=== PATIENT | female | born 1960 | race Caucasian/White ===

== ENCOUNTER → 2020-01-19 13:20 | Outpatient (CLI) | payer OTHER, SELFPAY ==
[2020-01-21 14:08] LABS: Covid-19 Nasal PCR Sendout Lex NOT DETECTED
== END ==
PROVIDERS: Visit Provider Internal Medicine
DX: Z01.89 Encounter for other specified special examinations (principal)
CPT/HCPCS: U0004

== ENCOUNTER 2022-10-06 13:21 | Emergency (ER) | payer MEDICAID, SELFPAY ==
--- NOTE | 2022-10-06 13:25 | HMH.EDGENADL ---
Discharge Plan Disposition Patient Disposition: Home, Self-Care Prescriptions Prescriptions: New ondansetron 4 mg tablet,disintegrating 4 mg PO Q6H PRN (Reason: nausea and vomiting) 5 Days Qty: 20 0RF No Action prednisone 10 MG tablet 10 mg PO BID 5 Days Qty: 10 0RF Rx Instructions: watch glucose close Referrals Follow up/Referrals: David Angeles [Primary Care Provider] - See instructions Activity Restrictions/Add. Instructions Additional Instructions/Restrictions: Return to the emergency department if she cannot keep any fluids down or if your pain significantly worsens. Clinical Impressions Clinical Impression: Nausea vomiting and diarrhea Instructions Patient Instructions: DI for Acute Abdominal Pain Discharge ED Provider: Dylan Edwards General Adult HPI General Chief complaint: Abdominal Pain Stated complaint: Nausea, unable to eat, diarrhea Time Seen by Provider: 10/06/22 13:25 History of Present Illness HPI narrative: Patient is a 62-year-old female here with nausea vomiting diarrhea and abdominal pain. States this is been going on the last several days since she has been unable to tolerate anything by mouth. No blood in her stool or vomit. From historical standpoint she says she does not have any significant or severe pain. Related Data Previous Rx's Medication Instructions Recorded prednisone 10 mg tablet 10 mg PO BID 5 days #10 tabs 02/07/19 ondansetron 4 mg disintegrating 4 mg PO Q6H PRN nausea and 10/06/22 tablet vomiting 5 days #20 tabs Allergies Allergy/AdvReac Type Severity Reaction Status Date / Time No Known Allergies Allergy Verified 10/06/22 13:46 [facility] Disclaimer: The information contained in this section may have been updated after the patient was seen, as this information can be updated by other users. Social History Smoking Status: Never smoker alcohol intake: never current occupational status: other Travel in the last 8 weeks: None ROS Obtained: Yes All systems reviewed & no additional complaints except as documented Physical Exam General General appearance: alert Respiratory Respiratory exam: Present normal lung sounds bilaterally; Absent respiratory distress Cardiovascular Cardiovascular exam: Present regular rate; Absent tachycardia Abdominal Exam Abdominal exam: Present distention and tenderness (Diffusely tender in all quadrants no rebound or guarding) Neurological Exam Neurological exam: Present alert and oriented X3 Medical Decision Making [place] Inquiry Pt receiving controlled substance: No Vital Signs: 10/06/22 13:31 10/06/22 13:26 10/06/22 13:29 Temperature 97.5 F L Temperature Source Oral Pulse Rate 85 80 Pulse Rate [Left Radial] 83 Respiratory Rate 20 Blood Pressure 173/155 H 172/70 H Blood Pressure [Right Arm] 172/70 H Blood Pressure Mean 159 122 Blood Pressure Mean [Right Arm] 104 02 Sat by Pulse Oximetry 99 100 98 Oxygen Delivery Method Room Air Room Air Room Air 10/06/22 14:01 10/06/22 14:31 Temperature Temperature Source Pulse Rate 74 79 Pulse Rate [Left Radial] Respiratory Rate Blood Pressure 128/64 165/72 H Blood Pressure [Right Arm] Blood Pressure Mean 104 103 Blood Pressure Mean [Right Arm] 02 Sat by Pulse Oximetry 98 98 Oxygen Delivery Method Room Air Room Air Lab Data Lab results reviewed: Yes I reviewed the patient's lab results. Lab Results 10/06/22 13:38: WBC 13.8 H, RBC 5.59 H, Hgb 14.4, Hct 45.6, MCV 81.6, MCH 25.7 L, MCHC 31.5 L, RDW 16.9, Plt Count 409, MPV 7.8, Neut % (Auto) 75.9, Lymph % (Auto) 18.5, Preston % (Auto) 5.1, Eos % (Auto) 0.2, Baso % (Auto) 0.3, Neut # (Auto) 10.4 H, Lymph # (Auto) 2.5, Preston # (Auto) 0.7, Eos # (Auto) 0.0, Baso # (Auto) 0.1 10/06/22 13:38: Sodium 132 L, Potassium 4.1, Chloride 95 L, Carbon Dioxide 23, Anion Gap 18.1 H, BUN 37 H, Creatinine 1.40 H, Estimated Creat Clear 34, Estimated GFR 38 L, Est GFR (
[2022-10-06 13:26] VITALS: BP 173/155; PULSE 85; O2SAT 100
[2022-10-06 13:29] VITALS: BP 172/70; PULSE 80; O2SAT 98
--- NOTE | 2022-10-06 13:29 | CT_ITS ---
PROCEDURE INFORMATION: Exam: CT Abdomen And Pelvis With Contrast Exam date and time: 10/06/2022 2:48 PM Age: 62 years old Clinical indication: Abdominal pain; Generalized; Additional info: Diffuse abd pain/ n/v/d TECHNIQUE: Imaging protocol: Computed tomography of the abdomen and pelvis with contrast. Radiation optimization: All CT scans at this facility use at least one of these dose optimization techniques: automated exposure control; mA and/or kV adjustment per patient size (includes targeted exams where dose is matched to clinical indication); or iterative reconstruction. Contrast material: ISOVUE; Contrast volume: 75 ml; Contrast route: IV; REPORTING DATA: Count of CT and Cardiac NM exams in prior 12 months: This patient has received 0 known CTs and 0 known cardiac nuclear medicine studies in the 12 months prior to the current study. COMPARISON: SPLUMBWO CT lumbar spine wo con 12/14/2017 7:34 PM FINDINGS: Liver: Hepatic steatosis noted. Gallbladder and bile ducts: There has been a cholecystectomy. Pancreas: Pancreas is unremarkable. Spleen: Spleen is unremarkable Adrenal glands: Normal. No mass. Kidneys and ureters: Nephrograms are symmetric. No nephrolithiasis or hydroureteronephrosis on either side. No solid lesions. Right renal cyst noted Stomach and bowel: No bowel wall thickening or distention. Appendix: A normal appendix is identified. Intraperitoneal space: Unremarkable. No free air. No significant fluid collection. Vasculature: Scattered calcifications noted. No abdominal aortic aneurysm. Lymph nodes: No evidence of retroperitoneal or mesenteric lymphadenopathy. Urinary bladder: Unremarkable as visualized. Reproductive: Unremarkable as visualized. Bones/joints: Unremarkable. No acute fracture. Soft tissues: Unremarkable. IMPRESSION: Hepatic steatosis. No acute abnormlaity in the abdomen or pelvis COMMENTS: Consistent with the [employer]'s Incidental Findings Committee white paper (J Am Kristan Radiol 2018): Any incidental renal lesion less than 1 cm or classified as too small to characterize, or any incidental cystic renal lesion characterized as simple-appearing, is likely benign. No follow-up imaging is recommended for these lesions per consensus recommendations based on imaging criteria.
[2022-10-06 13:31] VITALS: BP 172/70; PULSE 83; RESP 20; TEMP 36.4; O2SAT 99; BMI 49.6
[2022-10-06 14:01] VITALS: BP 128/64; PULSE 74; O2SAT 98
[2022-10-06 14:15] LABS: Basophils # 0.1 K/mm3 (0-0.2); Basophils % 0.3 % (0.1-2.0); Eosinophils % 0.2 % (0.1-12.0); Hematocrit 45.6 % (37.0-47.0); Hemoglobin 14.4 g/dL (12.2-16.2); Lymphocytes # 2.5 K/mm3 (0.7-4.5); Lymphocytes % 18.5 % (10-50); Mean Corpuscular HGB Conc 31.5 g/dL (31.8-35.4); Mean Corpuscular Hemoglobin 25.7 pg (27.0-31.2); Mean Corpuscular Volume 81.6 fl (81-99); Mean Platelet Volume 7.8 fl (7.4-10.4); Monocytes # 0.7 K/mm3 (0.1-1.0); Monocytes % 5.1 % (1.7-9.3); Neutrophils # 10.4 K/mm3 (1.8-7.8); Neutrophils % 75.9 % (37.0-80.0); Platelet Count 409 K/mm3 (142-424); Red Blood Count 5.59 M/mm3 (4.20-5.40); Red Cell Distribution Width 16.9 % (11.5-17.5); White Blood Count 13.8 K/mm3 (4.8-10.8)
[2022-10-06 14:17] LABS: Chloride 95 mmol/L (98-107); Potassium 4.1 mmoL/L (3.5-5.1); Sodium 132 mmol/L (136-145)
[2022-10-06 14:20] LABS: Alanine Aminotransferase 34 U/L (12-78); Alkaline Phosphatase 184 U/L (38-126); Anion Gap 18.1 mEq/L (5-15); Aspartate Amino Transferase 61 U/L (14-36); Bilirubin,Total 0.5 mg/dl (0.2-1.3); Blood Urea Nitrogen 37 mg/dl (7-17); Calcium 8.6 mg/dl (8.4-10.2); Carbon Dioxide 23 mmol/L (22.0-30.0); Creatinine Clearance Estimated 34 mL/min (50-200); Estimated Glomerular Filt Rate 38 ml/min (>60); GFR (African American) 46 ML/MIN (>60); Glucose 286 mg/dl (74-100); Lactic Acid 1.5 mmol/L (0.7-2.1); Lipase 210 U/L (23-300)
[2022-10-06 14:21] LABS: Albumin Level 4.1 g/dl (3.5-5.0); Albumin/Globulin Ratio 1.2 (1.1-1.8); Globulin 3.5 g/dL (1.3-3.2); Total Protein,Serum 7.6 g/dl (6.3-8.2)
[2022-10-06 14:31] VITALS: BP 165/72; PULSE 79; O2SAT 98
--- NOTE | 2022-10-06 15:01 | PC.NURSE ---
NOLVIA CHECKED ON PT
[2022-10-06 15:25] VITALS: BP 168/76; PULSE 80; RESP 20; TEMP 36.4; O2SAT 98
== END 2022-10-06 15:27 | disposition home or self-care (01) ==
PROVIDERS: Emergency Provider Student in an Organized Health Care Education/Training Program; PCP Family Medicine
DX: R10.9 Unspecified abdominal pain (principal); R11.2 Nausea with vomiting, unspecified; R19.7 Diarrhea, unspecified; E66.01 Morbid (severe) obesity due to excess calories
CPT/HCPCS: 74177; 80053; 83605; 83690; 85025; 96361; 96374; 96375; 99285; J2405; Q9967

== ENCOUNTER 2023-03-08 19:00 | Observation (INO) | payer OTHER, SELFPAY ==
[2023-03-08 19:25] VITALS: BP 142/88; PULSE 76; RESP 19; TEMP 36.9; O2SAT 98; BMI 50.5
[2023-03-08 19:31] VITALS: BP 160/84; PULSE 78; RESP 18; TEMP 36.7; O2SAT 99
--- NOTE | 2023-03-08 19:54 | EXP.UTC ---
Discharge Plan Disposition Patient Disposition: Still a Patient Prescriptions Prescriptions: No Action atorvastatin 80 mg tablet 80 mg PO HS hydrochlorothiazide 50 mg tablet 50 mg PO DAILY lisinopril 20 mg tablet 20 mg PO DAILY hydrocodone-acetaminophen 10-325 mg tablet 1 tab PO TID gabapentin 800 mg tablet 800 mg PO TID dicyclomine 10 mg capsule 10 mg PO DAILYP PRN (Reason: CRAMPING) insulin degludec 200 unit/mL (3 mL) insulin pen See Rx Instructions .ROUTE .COMPLEX Rx Instructions: SEE INSTRUCTIONS Referrals Follow up/Referrals: David Angeles [Primary Care Provider] - See instructions Discharge ED Provider: Kim Escobar [facility] [place] HPI General Stated complaint: swollen in mouth , cant eat or drink Mode of Arrival: Ambulatory Source of Information: Patient Limitations: No Limitations Time Seen by Provider: 03/08/23 19:54 Description of Symptoms (Recalled from Triage Doc. 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 Symptoms (Recalled from RN notes): Yes Resp Symptoms (Recalled from RN notes): No Skin Symptoms (Recalled from RN notes): No MS Symptoms (Recalled from RN notes): No Functional Status (Recalled from RN notes): WNL History of Present Illness Provider Complaint: Patient states that she was fine and laid down and took a nap about 3 hours ago and when she woke up her tongue felt swollen like she may have had blisters under it States that she wasnt able to eat her supper because she couldnt swallow it and she took some childrens liquid benadryl but it hasnt helped much States that she feels like it is getting worse and feels like it is starting into her neck Related Data Home Medications Medication Instructions Recorded Confirmed atorvastatin 80 mg tablet 80 mg PO HS 03/08/23 03/08/23 dicyclomine 10 mg capsule 10 mg PO DAILYP PRN CRAMPING 03/08/23 03/08/23 gabapentin 800 mg tablet 800 mg PO TID 03/08/23 03/08/23 hydrochlorothiazide 50 mg tablet 50 mg PO DAILY 03/08/23 03/08/23 hydrocodone 10 mg-acetaminophen 1 tab PO TID 03/08/23 03/08/23 325 mg tablet insulin degludec 200 unit/mL (3 See Rx Instructions .Route .COMPLEX 03/08/23 03/08/23 mL) subcutaneous pen lisinopril 20 mg tablet 20 mg PO DAILY 03/08/23 03/08/23 Allergies Allergy/AdvReac Type Severity Reaction Status Date / Time No Known Allergies Allergy Verified 10/06/22 13:46 Worker's Comp Is this a Worker's Comp case?: No [facility] Disclaimer: The information contained in this section may have been updated after the patient was seen, as this information can be updated by other users. Social History Smoking Status: Never smoker alcohol intake: never current occupational status: other Travel in the last 8 weeks: None ROS Obtained: Yes All systems reviewed & no additional complaints except as documented and Yes Systems reviewed as appropriate & no additional complaints except as documented Eyes Eyes: Reports system reviewed and no additional complaints, except as documented and Reports as per HPI ENT Ears, Nose, Mouth, and Throat: Reports system reviewed and no additional complaints, except as documented, Reports as per HPI and Reports other Comments: tongue swelling and having a hard time swallowing Cardiovascular Cardiovascular: Reports system reviewed and no additional complaints, except as documented and Reports as per HPI Respiratory Respiratory: Reports system reviewed and no additional complaints, except as documented, Reports as per HPI and Denies shortness of breath Gastrointestinal Gastrointestingal: Reports system reviewed and no additional complaints, except as documented and as per HPI Musculoskeletal Musculoskeletal: Reports system reviewed and no additional complaints, except as documented and Reports as per HPI Integumentary/Breasts Skin/Breast: Reports system reviewed and no additional complaints, except as documented and Repo
--- NOTE | 2023-03-08 20:05 | PC.NURSE ---
PATIENT SENT TO ER PER Angelica HOWELL APRN FOR FURTHER EVALUATION. REPORT GIVEN TO Mauricio HURTADO RN. PATIENT AMBULATED TO ER WITH STAFF ASSIST AT THIS TIME
[2023-03-08 20:17] VITALS: BP 130/106; PULSE 75; RESP 22; TEMP 37; O2SAT 97; BMI 47.2
--- NOTE | 2023-03-08 20:20 | CT_ITS ---
PROCEDURE INFORMATION: Exam: CT Neck With Contrast Exam date and time: 03/08/2023 9:50 PM Age: 63 years old Clinical indication: Other: Angioedema; Additional info: Angioedema, unknown etiology TECHNIQUE: Imaging protocol: Computed tomography of the neck with contrast. Radiation optimization: All CT scans at this facility use at least one of these dose optimization techniques: automated exposure control; mA and/or kV adjustment per patient size (includes targeted exams where dose is matched to clinical indication); or iterative reconstruction. Contrast material: ISOVUE; Contrast volume: 75 ml; Contrast route: IV; REPORTING DATA: Count of CT and Cardiac NM exams in prior 12 months: This patient has received [address] and 0 known cardiac nuclear medicine studies in the 12 months prior to the current study. COMPARISON: CR XR SHOULDER RT MIN 2V 02/07/2019 5:11 PM FINDINGS: Oral cavity: Tongue appears swollen, however, there are no focal fluid collections or masses. Pharynx: Unremarkable. No significant tonsillar enlargement. Larynx: Unremarkable. Epiglottis is normal. Prevertebral and retropharyngeal spaces: Unremarkable. Salivary glands: Normal. Glands are normal in size. Thyroid: Normal. No enlarged or calcified nodules. Lymph nodes: Unremarkable. No lymphadenopathy. Trachea: Visualized trachea is unremarkable. Lungs: Unremarkable as visualized. Bones/joints: Unremarkable. No acute fracture. Soft tissues: Unremarkable. No significant soft tissue swelling. IMPRESSION: Angioedema of the tongue without extension to surrounding pharyngeal soft tissues or airway compromise. No abscess.
[2023-03-08 20:27] LABS: Basophils # 0.1 K/mm3 (0-0.2); Basophils % 0.6 % (0.1-2.0); Eosinophils # 0.3 K/mm3 (0.0-0.4); Eosinophils % 2.3 % (0.1-12.0); Hematocrit 38.9 % (37.0-47.0); Hemoglobin 12.9 g/dL (12.2-16.2); Lymphocytes # 3.7 K/mm3 (0.7-4.5); Lymphocytes % 28.4 % (10-50); Mean Corpuscular HGB Conc 33.1 g/dL (31.8-35.4); Mean Corpuscular Hemoglobin 28.9 pg (27.0-31.2); Mean Corpuscular Volume 87.4 fl (81-99); Mean Platelet Volume 8.1 fl (7.4-10.4); Monocytes # 0.8 K/mm3 (0.1-1.0); Monocytes % 5.9 % (1.7-9.3); Neutrophils # 8.1 K/mm3 (1.8-7.8); Neutrophils % 62.8 % (37.0-80.0); Platelet Count 354 K/mm3 (142-424); Red Blood Count 4.45 M/mm3 (4.20-5.40); Red Cell Distribution Width 13.9 % (11.5-17.5); White Blood Count 12.9 K/mm3 (4.8-10.8)
[2023-03-08 20:30] LABS: Chloride 101 mmol/L (98-107); Potassium 4.9 mmoL/L (3.5-5.1); Sodium 136 mmol/L (136-145)
[2023-03-08 20:33] LABS: Alanine Aminotransferase 26 U/L (12-78); Albumin Level 4.3 g/dl (3.5-5.0); Albumin/Globulin Ratio 1.2 (1.1-1.8); Alkaline Phosphatase 162 U/L (38-126); Anion Gap 11.9 mEq/L (5-15); Aspartate Amino Transferase 28 U/L (14-36); Bilirubin,Total 0.2 mg/dl (0.2-1.3); Blood Urea Nitrogen 25 mg/dl (7-17); Carbon Dioxide 28 mmol/L (22.0-30.0); Creatinine Clearance Estimated 41 mL/min (50-200); Estimated Glomerular Filt Rate 45 ml/min (>60); GFR (African American) 55 ML/MIN (>60); Globulin 3.5 g/dL (1.3-3.2); Glucose 288 mg/dl (74-100); Total Protein,Serum 7.8 g/dl (6.3-8.2)
--- NOTE | 2023-03-08 20:33 | PC.NURSE ---
Sit visit with pt, advised that needed blanket, gave to pt, denies needs at this time, no acute [id number] noted/reportred
[2023-03-08 20:39] LABS: C-Reactive Protein 23.6 mg/L (0-4)
[2023-03-08 20:57] LABS: Erythrocyte Sedimentation Rate 70 mm/hr (0-30)
--- NOTE | 2023-03-08 21:29 | HMH.EDGENADL ---
Discharge Plan Disposition Patient Disposition: Admitted Clinical Impressions Clinical Impression: Angioedema Discharge ED Provider: Josselin Garcia General Adult HPI General Chief complaint: Dental/Oral Stated complaint: swollen in mouth , cant eat or drink Time Seen by Provider: 03/08/23 19:54 Mode of Arrival: Ambulatory Source of Information: Patient Limitations: No Limitations Description of Symptoms (Recalled from ER Triage Doc. by RN): pt states she was taking a nap today and when she woke up the L side of her tongue was swollen and she had a blister under it. pt denies any new meds/food types. pt denies any known allergens. pt has a hx of COPD but states she feels slightly more SOA History of Present Illness HPI narrative: This patient is a 63-year-old female with a history of hypertension, hyperlipidemia, diabetes, COPD, and chronic pain presenting to the emergency department for evaluation with concern for tongue and subungual swelling. Patient notes that she laid down to take a nap and woke up just before 5 PM with the swelling. She states that it is making it difficult to swallow. She states she feels slightly more short of breath than usual, but does note a baseline history of COPD. Of note, she does take lisinopril, which she states that she has been on for a while. She denies any known allergies. She denies any fevers, chills, cough, congestion, abdominal pain, nausea, vomiting, change in bowel movements, rashes, or other concerns. She was evaluated in the urgent treatment center initially, who sent her over here with concerns for angioedema. I had a discussion with the provider regarding her concerns. Related Data Home Medications Medication Instructions Recorded Confirmed albuterol sulfate 90 mcg/actuation 2 puff inhalation Q6H PRN SOA 03/08/23 03/08/23 aerosol inhaler atorvastatin 80 mg tablet 80 mg PO HS 03/08/23 03/08/23 budesonide-formoterol HFA 80 1 inh inhalation BID 03/08/23 03/08/23 mcg-4.5 mcg/actuation aerosol inhaler (Symbicort) dicyclomine 10 mg capsule 10 mg PO DAILYP PRN CRAMPING 03/08/23 03/08/23 gabapentin 800 mg tablet 800 mg PO TID 03/08/23 03/08/23 hydrochlorothiazide 50 mg tablet 50 mg PO DAILY 03/08/23 03/08/23 hydrocodone 10 mg-acetaminophen 1 tab PO TID PRN Pain, Moderate 03/08/23 03/08/23 325 mg tablet insulin degludec 200 unit/mL (3 See Rx Instructions .Route .COMPLEX 03/08/23 03/08/23 mL) subcutaneous pen lisinopril 20 mg tablet 20 mg PO DAILY 03/08/23 03/08/23 loratadine 10 mg tablet (Claritin) 10 mg PO DAILY 03/08/23 03/08/23 Allergies Allergy/AdvReac Type Severity Reaction Status Date / Time No Known Allergies Allergy Verified 03/08/23 20:21 [facility] Disclaimer: The information contained in this section may have been updated after the patient was seen, as this information can be updated by other users. Medical History (Updated 03/08/23 @ 22:58 by Annemarie Rene RN) History of back pain Surgical History (Updated 03/08/23 @ 23:00 by Annemarie Rene RN) H/O dilation and curettage History of back surgery History of Hx of cholecystectomy Family History (Updated 03/08/23 @ 22:58 by Annemarie Rene RN) Mother Brain aneurysm Father Kidney failure Social History (Updated 03/08/23 @ 22:57 by Annemarie Rene RN) Smoking Status: Former smoker tobacco type: cigarettes packs per day: 1 alcohol intake: never current occupational status: other Travel in the last 8 weeks: None ROS Obtained: Yes All systems reviewed & no additional complaints except as documented Physical Exam General General appearance: alert, in no apparent distress and obese Head Head exam: atraumatic and normocephalic Eye Eye exam: Present normal appearance, PERRL and EOMI ENT ENT exam: Present mucous membranes moist and normal external ear exam Expanded ENT Exam Nasal speculum exam: Bilateral: normal Mouth exam: Present tongue
--- NOTE | 2023-03-08 22:18 | PC.NURSE ---
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
--- NOTE | 2023-03-08 22:28 | EXP.HP ---
History of Present Illness *Admission Date: 03/08/23 *Reason for visit:: HUMAIRA inhibitor induced angioedema *History of present illness: 63 year old female presented to the ED for c/o angioedema that started around 5 p.m. Reports use of lisinopril for HTN. PMHX of DM, HLD, HTN, COPD, and chronic back and knee pain. Her ED workup reveals a leukocytosis of 12.9, creatinine of 1.20 which is better than all prior, and CT of her neck that reveals no airway compromise or abscess. There is noted angioedema of her tongue. The pt receieved IM Epi, IV TXA, Benadryl and solumedrol. The ED physician consulted the hospilast team for further medical management. I admitted the pt the medical surgical floor for observation overnight of her airway. Upon arrival she has angioedema of her tongue still. Greater on the left. She is able to control her secretions, denies SOB or trouble swallowing, and is requesting to eat food. We will advance diet as tolerated and hold her lisinopril. [facility] Disclaimer: The information contained in this section may have been updated after the patient was seen, as this information can be updated by other users. Medical History (Updated 03/09/23 @ 07:36 by Kaden Salamanca MD) History of back pain Surgical History (Updated 03/08/23 @ 23:00 by Annemarie Rene RN) H/O dilation and curettage History of back surgery History of Hx of cholecystectomy Family History (Updated 03/08/23 @ 22:58 by Annemarie Rene RN) Brain aneurysm Mother Kidney failure Father Social History (Updated 03/08/23 @ 22:57 by Annemarie Rene RN) Smoking Status: Former smoker tobacco type: cigarettes packs per day: 1 alcohol intake: never current occupational status: other Travel in the last 8 weeks: None Review of Systems *Cardiovascular Cardiovascular: Reports system reviewed and no additional complaints, except as documented *Respiratory Respiratory: Reports system reviewed and no additional complaints, except as documented *Gastrointestinal Gastrointestinal: Reports system reviewed and no additional complaints, except as documented *Genitourinary Genitourinary: Reports system reviewed and no additional complaints, except as documented *Musculoskeletal Musculoskeletal: Reports system reviewed and no additional complaints, except as documented *Neurologic Neurologic: Reports system reviewed and no additional complaints, except as documented and Reports as per [facility] Meds Home Medications and Allergies Home Medications Medication Instructions Recorded Confirmed Type albuterol sulfate 90 mcg/actuation 2 puff inhalation Q6H PRN SOA 03/08/23 03/08/23 History aerosol inhaler atorvastatin 80 mg tablet 80 mg PO HS 03/08/23 03/08/23 History budesonide-formoterol HFA 80 1 inh inhalation BID 03/08/23 03/08/23 History mcg-4.5 mcg/actuation aerosol inhaler (Symbicort) dicyclomine 10 mg capsule 10 mg PO DAILYP PRN CRAMPING 03/08/23 03/08/23 History gabapentin 800 mg tablet 800 mg PO TID 03/08/23 03/08/23 History hydrochlorothiazide 50 mg tablet 50 mg PO DAILY 03/08/23 03/08/23 History hydrocodone 10 mg-acetaminophen 1 tab PO TID PRN Pain, Moderate 03/08/23 03/08/23 History 325 mg tablet insulin degludec 200 unit/mL (3 See Rx Instructions .Route .COMPLEX 03/08/23 03/08/23 History mL) subcutaneous pen loratadine 10 mg tablet (Claritin) 10 mg PO DAILY 03/08/23 03/08/23 History carvedilol 6.25 mg tablet 6.25 mg PO BID 30 days #60 tabs 03/09/23 Rx New Prescriptions to Start Prescriptions: carvedilol Kaden Salamanca Allergies Allergy/AdvReac Type Severity Reaction Status Date / Time No Known Allergies Allergy Verified 03/08/23 20:21 Exam Data for Last 24 hours Vital signs and Labs for Last 24 Hours: Temp Pulse Resp BP Pulse Ox O2 Del Method 98.6 F 75 22 130/106 H 97 Room Air 03/08/23 20:17 03/08/23 20:17 03/08/23 20:17 03/08/23 20:17 03/08/23 20:17
[2023-03-08 22:41] VITALS: BP 152/78; PULSE 80; RESP 16; TEMP 36.7; O2SAT 99
--- NOTE | 2023-03-08 22:43 | PC.NURSE ---
Pt arrived to floor via wheelchair @ 1951
[2023-03-08 23:10] LABS: Hemoglobin A1C 12.6 % (4.0-6.0)
[2023-03-08 23:14] VITALS: BP 152/69; PULSE 76; RESP 18; TEMP 37.1; O2SAT 93; BMI 47.0
[2023-03-09] VITALS: BP 157/75; PULSE 71; RESP 18; TEMP 37; O2SAT 94
[2023-03-09 04:00] VITALS: BP 145/77; PULSE 78; RESP 18; TEMP 37.1; O2SAT 97; BMI 47.0
[2023-03-09 05:48] LABS: POC Glucose,Bedside 310 (70-110)
--- NOTE | 2023-03-09 07:32 | EXP.DC.SUM ---
General Admission date:: 03/08/23 Discharge date: 03/09/23 HPI HPI HPI: 63 year old female presented to the ED for c/o angioedema that started around 5 p.m. Reports use of lisinopril for HTN. PMHX of DM, HLD, HTN, COPD, and chronic back and knee pain. Her ED workup reveals a leukocytosis of 12.9, creatinine of 1.20 which is better than all prior, and CT of her neck that reveals no airway compromise or abscess. There is noted angioedema of her tongue. The pt receieved IM Epi, IV TXA, Benadryl and solumedrol. The ED physician consulted the hospilast team for further medical management. I admitted the pt the medical surgical floor for observation overnight of her airway. Upon arrival she has angioedema of her tongue still. Greater on the left. She is able to control her secretions, denies SOB or trouble swallowing, and is requesting to eat food. We will advance diet as tolerated and hold her lisinopril. Hospital Course Hospital Course Hospital Course: 63 year old female presented to the ED for c/o angioedema that started around 5 p.m. Reports use of lisinopril for HTN. PMHX of DM, HLD, HTN, COPD, and chronic back and knee pain. Her ED workup reveals a leukocytosis of 12.9, creatinine of 1.20 which is better than all prior, and CT of her neck that reveals no airway compromise or abscess. There is noted angioedema of her tongue. The pt receieved IM Epi, IV TXA, Benadryl and solumedrol. The ED physician consulted the hospilast team for further medical management. I admitted the pt the medical surgical floor for observation overnight of her airway. Upon arrival she has angioedema of her tongue still. Greater on the left. She is able to control her secretions, denies SOB or trouble swallowing, and is requesting to eat food. Swelling resolved overnight. Stable on room air. Room air sat 92% at rest, 94% with exertion after 6-minute walk. Tolerating good p.o. intake. Stable to discharge home. Problems addressed as follows: ANGIOEDEMA -Airway watch overnight, pt arrives to floor with minimal tongue swelling. Swelling resolved by morning. No further issues. Stable on room air. Treated aggressively with epinephrine, Benadryl. Patient at baseline level of function by morning. Discontinued lisinopril and recommend holding indefinitely. Adjustments made to medication as per below. Recommend close follow-up with PCP within the week to discuss medication changes and further management of blood pressure DIABETES -SSI insulin during admission with fingersticks ACHS. A1c obtained 12.6. Continue given. Needs estimate regimen in the patient setting. Would benefit from addition of short acting insulin with meal or GLP-1. Defer further management to PCP. HLD HTN COPD CHRONIC PAIN -Continue home medications for chronic conditions. For blood pressure, initiated carvedilol 6.25 mg twice daily. May need titration in the outpatient setting. Blood pressure 157/90. Exam Data for Last 24 hours Vital signs and Labs for Last 24 Hours: Temp Pulse Resp BP Pulse Ox O2 Del Method O2 Flow Rate 98.7 F 78 18 145/77 H 97 Room Air 2 03/09/23 04:00 03/09/23 04:00 03/09/23 04:00 03/09/23 04:00 03/09/23 04:00 03/09/23 06:23 03/09/23 04:00 Laboratory Results - last 24 hr 03/08/23 20:15: WBC 12.9 H, RBC 4.45, Hgb 12.9, Hct 38.9, MCV 87.4, MCH 28.9, MCHC 33.1, RDW 13.9, Plt Count 354, MPV 8.1, Neut % (Auto) 62.8, Lymph % (Auto) 28.4, Richardson % (Auto) 5.9, Eos % (Auto) 2.3, Baso % (Auto) 0.6, Neut # (Auto) 8.1 H, Lymph # (Auto) 3.7, Richardson # (Auto) 0.8, Eos # (Auto) 0.3, Baso # (Auto) 0.1, ESR 70 H, Sodium 136, Potassium 4.9, Chloride 101, Carbon Dioxide 28, Anion Gap 11.9, BUN 25 H, Creatinine 1.20 H, Estimated Creat Clear 41, Estimated GFR 45 L, Est GFR ( Amer) 55 L, Glucose 288 H, Hemoglobin A1c 12.6 H, Calcium 9.0, Total Bilirubin 0.2, AST 28, ALT 26, Alkaline Phosphatase 162 H, C-Reactive Protein 23.6 H, Total Protein 7.8, Albumin 4.3, Globulin 3.5 H, A
[2023-03-09 08:00] VITALS: BP 157/90; PULSE 88; RESP 18; TEMP 36.6; O2SAT 96
[2023-03-09 08:31] VITALS: O2SAT 92
--- NOTE | 2023-03-09 08:31 | PC.NURSE ---
at rest pts 02 92%. pt states severe soa while ambulating
[2023-03-09 08:41] LABS: Anion Gap 17.8 mEq/L (5-15); Blood Urea Nitrogen 25 mg/dl (7-17); Calcium 9.5 mg/dl (8.4-10.2); Carbon Dioxide 22 mmol/L (22.0-30.0); Chloride 100 mmol/L (98-107); Creatinine Clearance Estimated 45 mL/min (50-200); Estimated Glomerular Filt Rate 50 ml/min (>60); GFR (African American) 61 ML/MIN (>60); Glucose 353 mg/dl (74-100); Potassium 5.8 mmoL/L (3.5-5.1); Sodium 134 mmol/L (136-145)
[2023-03-09 08:55] LABS: Basophils % 0.1 % (0.1-2.0); Hematocrit 39.4 % (37.0-47.0); Hemoglobin 13.2 g/dL (12.2-16.2); Lymphocytes # 1.2 K/mm3 (0.7-4.5); Lymphocytes % 8.8 % (10-50); Mean Corpuscular HGB Conc 33.5 g/dL (31.8-35.4); Mean Corpuscular Hemoglobin 29.2 pg (27.0-31.2); Mean Corpuscular Volume 87.3 fl (81-99); Mean Platelet Volume 8.3 fl (7.4-10.4); Monocytes # 0.2 K/mm3 (0.1-1.0); Monocytes % 1.7 % (1.7-9.3); Neutrophils # 12.6 K/mm3 (1.8-7.8); Neutrophils % 89.5 % (37.0-80.0); Platelet Count 337 K/mm3 (142-424); Red Blood Count 4.52 M/mm3 (4.20-5.40); Red Cell Distribution Width 13.9 % (11.5-17.5)
[2023-03-09 09:04] LABS: MANUAL DIFFERENTIAL MANUAL DIFFERENTIAL (MANUAL DIFF)
--- NOTE | 2023-03-09 10:00 | PC.NURSE ---
o2 sat 94-95% while ambulating
--- NOTE | 2023-03-09 10:14 | PC.NURSE ---
patient walked in hallway
[2023-03-09 11:00] LABS: Lymphocytes % 11 % (10-50); Monocytes % 4 % (2-9); Neutrophils % 85 % (42-76); Platelet Estimate Normal; RBC Morphology Normal; Total Cells Counted 100
[2023-03-09 11:37] LABS: POC Glucose,Bedside 438 (70-110)
--- NOTE | 2023-03-10 14:27 | SW/DCPLANNER ---
Follow up phone call w/ this patient: I spoke w/ patient's daughter and she stated that patient is doing well at this time. Daughter stated that they do not have any questions/needs at this time.
== END 2023-03-09 12:00 | disposition home or self-care (01) ==
LOC: UTC 20:06 → ER 20:10 → 2ND 22:24
PROVIDERS: Nurse Practitioner Critical Care Medicine; Admitting Provider Internal Medicine Adolescent Medicine; Emergency Provider Emergency Medicine; PCP Family Medicine; Visit Provider Internal Medicine Adolescent Medicine
DX: T46.4X5A Adverse effect of angiotensin-converting-enzyme inhibitors, initial encounter (principal); T78.3XXA Angioneurotic edema, initial encounter; E11.9 Type 2 diabetes mellitus without complications; E78.5 Hyperlipidemia, unspecified; I10 Essential (primary) hypertension; J44.9 Chronic obstructive pulmonary disease, unspecified; G89.29 Other chronic pain; E66.01 Morbid (severe) obesity due to excess calories; Z68.42 Body mass index [BMI] 45.0-49.9, adult; Z79.4 Long term (current) use of insulin
CPT/HCPCS: 36415; 70491; 80048; 80053; 82962; 83036; 85007; 85025; 85651; 86140; G0378; Q9967

== ENCOUNTER 2024-05-19 16:29 | Emergency (ER) | payer OTHER, SELFPAY ==
[2024-05-19 16:30] VITALS: BP 176/84; PULSE 78; RESP 18; TEMP 36.6; O2SAT 97; BMI 48.6
--- NOTE | 2024-05-19 16:58 | CT_ITS ---
PROCEDURE INFORMATION: Exam: CT Abdomen And Pelvis With Contrast Exam date and time: 05/19/2024 5:31 PM Age: 64 years old Clinical indication: Abdominal pain; Localized; Right lower quadrant (rlq); Additional info: R flank and rlq pain with vomiting and anorexia TECHNIQUE: Imaging protocol: Computed tomography of the abdomen and pelvis with contrast. Radiation optimization: All CT scans at this facility use at least one of these dose optimization techniques: automated exposure control; mA and/or kV adjustment per patient size (includes targeted exams where dose is matched to clinical indication); or iterative reconstruction. Contrast material: ISOVUE; Contrast volume: 75 ml; Contrast route: IV; COMPARISON: CT ABDOMEN PELVIS W CON 10/06/2022 2:48 PM FINDINGS: Lungs: Visualized lung bases are clear. Granulomatous calcifications in the right perihilar region. Heart: Heart size normal. Coronary arteries: Severe coronary artery calcification. Esophagus: The visualized distal esophagus is largely contracted without gross abnormality. Liver: Normal contour. No mass lesions. No intrahepatic biliary ductal dilatation. Gallbladder and biliary ducts: Prior cholecystectomy with no significant dilatation of the common bile duct. Pancreas: Mild pancreatic atrophy without acute abnormality. No pancreatic ductal dilatation. Spleen: Normal. No splenomegaly. Adrenal glands: Normal. No adrenal mass. Kidneys and ureters: Mild bilateral chronic symmetrical perinephric stranding, nonspecific. This is unchanged and may relate to chronic perirenal scarring or edema. No hydronephrosis or hydroureter. No urinary tract stones are identified. Low-density cortical cyst in the upper pole of the right kidney which does not require further assessment. Stomach and bowel: Stomach is largely contracted, probably accounting for the thick-walled appearance although it appears slightly focally greater in the proximal lesser curvature. Recommend nonemergent evaluation with endoscopy, upper GI series, or CT with oral contrast to exclude changes of gastritis or mass. The small bowel is nondilated with no gross abnormality. Submucosal fatty transformation is seen in the proximal colon from the cecum through the mid transverse colon suggesting chronic changes of prior recurrent colitis. Questionable wall thickening and adjacent stranding in this distribution could represent a mild element of active colitis. There are few diverticula present in the distal colon without evidence of acute diverticulitis. Appendix: No evidence of appendicitis. Intraperitoneal space: No peritoneal free fluid or air. Vasculature: No acute process. No abdominal aortic aneurysm. Moderate calcific atherosclerosis. Retroaortic left renal vein configuration noted. Lymph nodes: No adenopathy. Urinary bladder: The urinary bladder is partially contracted without gross abnormality. Reproductive: There are few subcentimeter uterine calcifications likely representing small fibroids. No gross ovarian abnormalities. Bones/joints: No acute osseous abnormalities. Osteopenia. Moderate thoracolumbar spondylosis with multilevel advanced disc osteoarthritic changes. Severe canal stenosis L3-L4 and L4-L5. Soft tissues: No acute soft tissue abnormalities. IMPRESSION: 1. Question mild active colitis in the proximal colon. There is submucosal fatty transformation in this region consistent with underlying chronic changes of prior recurrent colitis. 2. Appearance of proximal gastric wall thickening may be related to contracted status, but is focally greater in the proximal lesser curvature. Recommend nonemergent upper GI series versus endoscopy versus CT with oral contrast distension of the stomach to exclude mass or evidence of gastritis. 3. Severe coronary artery calcification. 4. Additional nonemergent findings detailed above. COMMENTS: Consistent with the [employer]'s Incidental Findings Committee white paper (J Am Kristan Radiol 2018): Any incidental renal lesion less than 1 cm or classified as too small to characterize, or any incidental cystic renal lesion characterized as simple-appearing, is likely benign. No follow-up imaging is recommended for these lesions per consensus recommendations based on imaging criteria.
--- NOTE | 2024-05-19 17:00 | HMH.EDGENADL ---
Discharge Plan Disposition Patient Disposition: Home, Self-Care Prescriptions Prescriptions: New cefdinir 300 mg capsule 300 mg PO BID 7 Days Qty: 14 0RF No Action atorvastatin 80 mg tablet 80 mg PO HS hydrochlorothiazide 50 mg tablet 50 mg PO DAILY hydrocodone-acetaminophen 10-325 mg tablet 1 tab PO TID PRN (Reason: Pain, Moderate) gabapentin 800 mg tablet 800 mg PO TID dicyclomine 10 mg capsule 10 mg PO DAILYP PRN (Reason: CRAMPING) insulin degludec 200 unit/mL (3 mL) insulin pen See Rx Instructions .ROUTE .COMPLEX Rx Instructions: BASED ON SLIDING SCALE BID albuterol sulfate 90 mcg/actuation Hfa Aerosol Inhaler 2 puff INHALATION Q6H PRN (Reason: SOA) loratadine [Claritin] 10 mg Tablet 10 mg PO DAILY budesonide-formoterol [Symbicort] 80-4.5 mcg/actuation Hfa Aerosol Inhaler 1 inh INHALATION BID carvedilol 6.25 mg Tablet 6.25 mg PO BID 30 Days Qty: 60 0RF Referrals Follow up/Referrals: David Angeles [Primary Care Provider] - See instructions Chris Luna II, MD [Staff Physician] - See instructions Activity Restrictions/Add. Instructions Additional Instructions/Restrictions: Follow with your family doctor and GI regarding this visit to the emergency department. Thickening of the stomach, you should try to get an upper GI scope scheduled for further evaluation. Cefdinir twice daily for 7 days. Call your family doctor to establish care for this visit to the emergency department and schedule follow-up within 48 hours to ensure improvement. If you have any worsening of your condition or any other concerning signs or symptoms, return to the emergency department or your primary care doctor for further evaluation. Clinical Impressions Clinical Impression: Abdominal pain Instructions Patient Instructions: DI for Acute Abdominal Pain Print Language Print Language: Italian Discharge ED Provider: Jaime Espinal General Adult HPI General Chief complaint: Abdominal Pain Stated complaint: abdominal pain on right side Time Seen by Provider: 05/19/24 16:34 Mode of Arrival: Wheelchair Source of Information: Patient Limitations: No Limitations Description of Symptoms (Recalled from ER Triage Doc. by RN): PT REPORTS INTERMITTENT RIGHT LOWER ABDOMINAL PAIN X 2 YEARS. REPORTS PAIN BECAME WORSE ON FRIDAY, PT STATES MY SUGAR DROPPED, I WAS SWEATING AND THE BED WAS SOAKING WET PT REPORTS NAUSEA AND YELLOW EMESIS. LAST BM TODAY History of Present Illness HPI narrative: Please note that above description of symptoms, in this electronic medical record under categorization of recalled from ER triage doctor by RN are reflective of an initial nursing assessment, however, is not reflective of my full history and physical exam that was personally taken and clarified. Consequentially, this preceding description of symptoms, which may include the patient's categorized chief complaint in the EMR, do not reflect my personal clinical impression, and the ultimate description of history of present illness and patient stated complaints should be deferred to this section of the note. Unless stated otherwise or congruent with this section of the note, additional signs, symptoms, or incongruence should be interpreted as inaccurate with my clinical impression. Related Data Home Medications ?Medication ?Instructions ?Recorded ?Confirmed albuterol sulfate 90 mcg/actuation 2 puff inhalation Q6H PRN SOA 03/08/23 03/08/23 aerosol inhaler atorvastatin 80 mg tablet 80 mg PO HS 03/08/23 03/08/23 budesonide-formoterol HFA 80 1 inh inhalation BID 03/08/23 03/08/23 mcg-4.5 mcg/actuation aerosol inhaler (Symbicort) dicyclomine 10 mg capsule 10 mg PO DAILYP PRN CRAMPING 03/08/23 03/08/23 gabapentin 800 mg tablet 800 mg PO TID 03/08/23 03/08/23 hydrochlorothiazide 50 mg tablet 50 mg PO DAILY 03/08/23 03/08/23 hydrocodone 10 mg-acetaminophen 1 tab PO TID PRN Pain, Moderate 03/08/23 03/08/23 325 mg tablet insulin degludec 200 unit/mL (3 See Rx Instructions .Route .COMPLEX 03/08/23 03/08/23 mL) subcutaneous pen loratadine 10 mg tablet (Claritin) 10 mg PO DAILY 03/08/23 03/08/23 Previous Rx's ?Medication ?Instructions ?Recorded carvedilol 6.25 mg tablet 6.25 mg PO BID 30 days #60 tabs 03/09/23 cefdinir 300 mg capsule 300 mg PO BID 7 days #14 caps 05/19/24 Allergies Allergy/AdvReac Type Severity Reaction Status Date / Time No Known Allergies Allergy Verified 03/08/23 20:21 PFSH PFSH Disclaimer: The information contained in this section may have been updated after the patient was seen, as this information can be updated by other users. Medical History (Updated 05/19/24 @ 18:44 by Jaime Espinal MD) History of back pain Surgical History (Updated 03/08/23 @ 23:00 by Annemarie Rene RN) History of back surgery H/O dilation and curettage Hx of cholecystectomy History of Family History (Updated 03/08/23 @ 22:58 by Annemarie Rene RN) Mother Brain aneurysm Father Kidney failure Social History (Updated 03/08/23 @ 22:57 by Annemarie Rene RN) Smoking Status: Former smoker tobacco type: cigarettes packs per day: 1 alcohol intake: never current occupational status: other Travel in the last 8 weeks: None Have you lived/traveled outside [place] in past 30 days?: No Contact w/someone who lives/traveled outside US past 30 days?: No Exposure to someone with infectious disease in past 14 days?: No Do you have a fever (greater than 100.4 F or 38 C)?: No Have you tested positive for COVID-19: No Exposed to someone with COVID-19 in past 14 days?: No Do you have a sore throat?: No Do you have a cough?: No Do you have any weakness?: No Do you have any diarrhea?: No Are you experiencing any unusual bleeding?: No Do you have any muscle aches/pain?: No Do you have any abdominal pain?: Yes Are you experiencing loss of taste or smell?: No Other Medical History Have you received the Flu Vaccine for this season: No Have you received the Pneumonia Vaccine: No ROS Obtained: Yes All systems reviewed & no additional complaints except as documented Physical Exam General General appearance: alert, in no apparent distress and obese Head Head exam: atraumatic and normocephalic Eye Eye exam: Present normal appearance, PERRL and EOMI Neck Neck exam: Present normal inspection, full ROM and trachea midline Respiratory Respiratory exam: Absent respiratory distress, wheezes, stridor, accessory muscle use or prolonged expiratory phase Cardiovascular Cardiovascular exam: Present other (Pulses equal symmetric in upper and lower extremities) Abdominal Exam Abdominal exam: Present soft and tenderness; Absent distention, guarding, rebound, rigidity or pulsatile mass Extremities Exam Extremities exam: Absent edema Back Exam Back exam: Present CVA tenderness (R); Absent CVA tenderness (L) Neurological Exam Neurological exam: Present alert, oriented X3 and CN II-XII intact; Absent motor sensory deficit Skin Skin exam: Present warm and dry; Absent diaphoresis or erythema Medical Decision Making Medical Records Medical records reviewed: Yes I reviewed the patient's medical records. Screening: Per USPSTF and CDC recommendations, given the prevalence of disease in our region, it is our hospital?s policy to screen for HIV and viral Hepatitis for all patients aged 18 and over and those with ongoing risk factors. Ramsey Inquiry Pt receiving controlled substance: No Ramsey was queried for this patient: No Vital Signs: 05/19/24 16:30 05/19/24 17:37 Temperature 97.9 F Temperature Source Oral Pulse Rate 69 Pulse Rate [Radial] 78 Respiratory Rate 18 Blood Pressure [Right Arm] 176/84 H Blood Pressure Mean [Right Arm] 114 Blood Pressure Source [Right Arm] Automatic Cuff Blood Pressure Position [Right Arm] Sitting 02 Sat by Pulse Oximetry 97 98 Oxygen Delivery Method Room Air Lab Data Lab Results 05/19/24 16:43: WBC 16.3 H, RBC 5.22, Hgb 14.0, Hct 43.7, MCV 83.7, MCH 26.8 L, MCHC 32.0, RDW 14.3, Plt Count 410, MPV 9.6, Neut % (Auto) 74.3, Lymph % (Auto) 17.0, Pitt % (Auto) 7.7, Eos % (Auto) 0.1, Baso % (Auto) 0.6, Neut # (Auto) 12.2 H, Lymph # (Auto) 2.8, Pitt # (Auto) 1.3 H, Eos # (Auto) 0.0, Baso # (Auto) 0.1, Total Counted 100, Neutrophils % (Manual) 68, Lymphocytes % (Manual) 23, Monocytes % (Manual) 9, Platelet Estimate Slight inc, Giant Platelets 1+, RBC Morphology Normal, APTT 27.2, Sodium 137, Potassium 3.8, Chloride 99, Carbon Dioxide 27, Anion Gap 14.8, BUN 44 H, Creatinine 1.40 H, Estimated Creat Clear 34, Estimated GFR 38 L, Est GFR ( Amer) 46 L, Glucose 266 H, Hemoglobin A1c 9.7 H, Calcium 9.1, Total Bilirubin 0.7, AST 35, ALT 31, Alkaline Phosphatase 173 H, Total Protein 8.0, Albumin 4.3, Globulin 3.7 H, Albumin/Globulin Ratio 1.2, Lipase 141, HCV Ab DAQUAN w/Rflx PCR Qn Negative, HIV Ag/Ab Combo Qual Negative 05/19/24 16:43 05/19/24 16:43 Orders (Tests/Meds): ED MEDICATIONS Generic Name Dose Route Start Last Admin Trade Name Freq PRN Reason Stop Dose Admin Cefdinir 300 mg 05/19/24 18:38 Cefdinir 300mg Capsule PO 05/19/24 18:39 ONCE ONE Discontinued Medications Generic Name Dose Route Start Last Admin Trade Name Freq PRN Reason Stop Dose Admin Sodium Chloride 1,000 mls @ 999 mls/hr 05/19/24 16:57 05/19/24 17:30 Sod Chlor 0.9% 1000ml Bag IV 05/19/24 17:57 999 mls/hr .Q1H1M ONE Administration Iopamidol 75 ml 05/19/24 17:33 05/19/24 17:34 Iopamidol-370 (76%);100ml Bottle IV 05/19/24 17:34 75 ml ONCE ONE Administration Ketorolac Tromethamine 15 mg 05/19/24 16:57 05/19/24 17:30 Ketorolac 30mg/Ml Vial IV 05/19/24 16:58 15 mg ONCE ONE Administration Sodium Chloride 10 ml 05/19/24 17:33 05/19/24 17:34 Sodium Chloride 0.9% 10ml Syr (Rad Only) IV 05/19/24 17:34 10 ml ONCE ONE Administration ORDERS Category Date Time Status CT abdomen pelvis w con Stat Cat Scan 05/19/24 16:58 Completed Complete Blood Count Auto Diff Stat Lab 05/19/24 16:43 Completed Comprehensive Metabolic Panel Stat Lab 05/19/24 16:43 Completed HIV Combo Stat Lab 05/19/24 16:43 Completed Hemoglobin A1C Stat Lab 05/19/24 16:43 Completed Hepatitis C Ab Qual. W/ RFX Stat Lab 05/19/24 16:43 Completed Lipase Stat Lab 05/19/24 16:43 Completed PTT [Activated Partial Thrombo Time] Stat Lab 05/19/24 16:43 Completed Urinalysis and Microscopic Stat Lab 05/19/24 16:59 Ordered Medical Decision Narrative: 64-year-old female history of hypertension, hyperlipidemia, diabetes, cholecystectomy, section presenting with abdominal pain. Patient states abdominal pain started 3 days prior to this. Hit her out of nowhere while she was sitting down. Started in her right flank, now in her right lower quadrant primarily. Associated with nonbloody, nonbilious vomiting. No objective measured fevers or chills, but states that she has been breaking out in cold sweats. No urinary symptoms, diarrhea, constipation, rash, or any other abnormalities. States that the pain is currently 9 out of 10, sharp. History was obtained via conversation with patient. On arrival, patient hemodynamically stable, alert, oriented x4, appropriate, GCS 15, moving all extremities spontaneously, pupils equal and reactive to light. Full physical exam performed and significant for obese, chronically ill appearing female who is in no acute distress. Abdomen is soft, nondistended, but mild to moderately tender in right lower quadrant. Also has mild to moderate right flank tenderness. No overlying skin changes. Differential includes nephrolithiasis, UTI, pyelonephritis, appendicitis, bowel perforation, constipation, small bowel obstruction, among others. Patient placed on continuous cardiac monitoring and continuous pulse ox with initial blood pressure 176/84, heart rate when he ate, saturation 97% on room air. Patient was given Toradol and fluids for symptomatic management and correction of underlying abnormalities. Workup independently interpreted and significant for leukocytosis 16,000 with neutrophilia. Patient's chemistry with stable CKD. Hemoglobin A1c of light at 9.7. Nonactionable. On independent interpretation of imaging, no acute intra-abdominal abnormalities. She does have thickening of the stomach, this was relayed to patient. See radiology read for full review of final results. On reevaluation, patient is resting at baseline. She is very frustrated that there was nothing that was found today. Patient states that she has been here for almost 3-1/2 hours and it is never like this. I came in for a swollen tongue and was in and out. Patient has not even been here for 2 hours when this conversation was had. Logistics of the emergency department were explained to patient, she is very obviously close minded to the situation. She is refusing to give a urine and stating that she tried, but I just cannot. These fluids are not going to help. Prolonged discussion had with patient regarding utility of urine and patient refusing. States she wants to go home. I feel this is reasonable. On the CT scan, patient does have perinephric fat stranding on the right, this could be consistent with pyelonephritis and could explain patient's symptoms. Given leukocytosis, findings on CT, refusal given urine, I feel it is reasonable to treat patient empirically for pyelonephritis. Given first dose of cefdinir here. Rest sent to the side pharmacy close return precautions were discussed. Because patient at baseline without signs or symptoms of clinical decompensation, deemed appropriate for discharge. Results were relayed to patient who voiced understanding and were agreeable to outpatient management and follow up. I discussed my clinical impression with patient and answered all questions. At this time, the evidence for any other entities in the differential is insufficient to warrant any further testing or ED observation. This was explained as well. Advisory was given that persistent or worsening symptoms require further evaluation. I confirmed the understanding of this discussion. Crm Marketing Manager disclaimer Much of this encounter note is an electronic hydrogeology professor spoken language to printed text. Electronic hydrogeology professor of the spoken language may permit errors. Although I have reviewed the note, some errors may still exist. Critical Care Critical Care Time Critical Care Time: No
[2024-05-19 17:09] LABS: Albumin Level 4.3 g/dl (3.5-5.0); Chloride 99 mmol/L (98-107); Potassium 3.8 mmoL/L (3.5-5.1); Sodium 137 mmol/L (136-145)
[2024-05-19 17:10] LABS: Basophils # 0.1 K/mm3 (0-0.2); Basophils % 0.6 % (0.1-2.0); Eosinophils % 0.1 % (0.1-12.0); Hematocrit 43.7 % (37.0-47.0); Lymphocytes # 2.8 K/mm3 (0.7-4.5); Mean Corpuscular Hemoglobin 26.8 pg (27.0-31.2); Mean Corpuscular Volume 83.7 fl (81-99); Mean Platelet Volume 9.6 fl (7.4-10.4); Monocytes # 1.3 K/mm3 (0.1-1.0); Monocytes % 7.7 % (1.7-9.3); Neutrophils # 12.2 K/mm3 (1.8-7.8); Neutrophils % 74.3 % (37.0-80.0); Platelet Count 410 K/mm3 (142-424); Red Blood Count 5.22 M/mm3 (4.20-5.40); Red Cell Distribution Width 14.3 % (11.5-17.5); White Blood Count 16.3 K/mm3 (4.8-10.8)
[2024-05-19 17:11] LABS: MANUAL DIFFERENTIAL MANUAL DIFFERENTIAL (MANUAL DIFF)
[2024-05-19 17:12] LABS: Alanine Aminotransferase 31 U/L (12-78); Albumin/Globulin Ratio 1.2 (1.1-1.8); Alkaline Phosphatase 173 U/L (38-126); Anion Gap 14.8 mEq/L (5-15); Aspartate Amino Transferase 35 U/L (14-36); Bilirubin,Total 0.7 mg/dl (0.2-1.3); Blood Urea Nitrogen 44 mg/dl (7-17); Carbon Dioxide 27 mmol/L (22.0-30.0); Creatinine Clearance Estimated 34 mL/min (50-200); Estimated Glomerular Filt Rate 38 ml/min (>60); GFR (African American) 46 ML/MIN (>60); Globulin 3.7 g/dL (1.3-3.2); Lipase 141 U/L (23-300)
[2024-05-19 17:13] LABS: Calcium 9.1 mg/dl (8.4-10.2); Glucose 266 mg/dl (74-100)
[2024-05-19 17:18] LABS: Activated Partial Thrombo Time 27.2 seconds (22.5-28.5)
--- NOTE | 2024-05-19 17:29 | PC.NURSE ---
PT TO CT
[2024-05-19] MEDS: 0.9 % SODIUM CHLORIDE 1000ML 1,000 ML 999 ML IV (17:30)
[2024-05-19] MEDS: KETOROLAC 30MG/ML VIAL 15 MG IV (17:30)
[2024-05-19] MEDS: SODIUM CHLORIDE 0.9% 10ML SYR (RAD ONLY) 10 ML IV (17:34)
[2024-05-19] MEDS: IOPAMIDOL-370 (76%);100ML BOTTLE 75 ML IV (17:34)
[2024-05-19 17:37] VITALS: PULSE 69; O2SAT 98
--- NOTE | 2024-05-19 17:37 | PC.NURSE ---
PT RETURNED FROM CT
--- NOTE | 2024-05-19 18:01 | PC.NURSE ---
ROUNDED ON PT, NO NEEDS AT THIS TIME. UNABLE TO PROVIDE URINE SPECIMEN. CALL LIGHT WITHIN REACH FOR PT TO CALL FOR STAFF WHEN SHE CAN
[2024-05-19 18:11] LABS: HIV Combo NEGATIVE (Negative); Hemoglobin A1C 9.7 % (4.0-6.0)
[2024-05-19 18:18] LABS: Hepatitis C Ab Qual. W/ RFX NEGATIVE (Negative); Lymphocytes % 23 % (10-50); Monocytes % 9 % (2-9); Neutrophils % 68 % (42-76); RBC Morphology Normal; Total Cells Counted 100
[2024-05-19 18:19] LABS: Giant Platelets 1+; Platelet Estimate Slight Inc
--- NOTE | 2024-05-19 18:22 | PC.NURSE ---
Patient tapping chair and asking for staff. Patient stating she has been here for 3 and a half hours and wants to know something now. Dr. Espinal notified.
--- NOTE | 2024-05-19 18:35 | PC.NURSE ---
DR QUIROGA AT BEDSIDE TO UPDATE PT
[2024-05-19] MEDS: CEFDINIR 300MG CAPSULE 300 MG PO (18:42)
[2024-05-19 18:45] VITALS: BP 151/64; PULSE 60; RESP 18; TEMP 36.6; O2SAT 97
== END 2024-05-19 18:45 | disposition home or self-care (01) ==
PROVIDERS: Emergency Provider Emergency Medicine; PCP Family Medicine
DX: K52.9 Noninfective gastroenteritis and colitis, unspecified (principal); R10.31 Right lower quadrant pain; R11.2 Nausea with vomiting, unspecified; R61 Generalized hyperhidrosis
CPT/HCPCS: 74177; 80053; 83036; 83690; 85007; 85025; 85027; 85730; 86803; 87389; 96361; 96374; 99285; J1885; J7030; Q9967